=== PATIENT | male | born 1995 | race American Indian/Alaskan Native ===

== ENCOUNTER 2022-01-04 10:16 | Emergency (ER) | payer SELFPAY ==
--- NOTE | 2022-01-04 13:17 | Emergency Department Report ---
ED ENT HPI - General Chief complaint: Sore Throat Stated complaint: SORE THROAT Time Seen by Provider: 01/04/22 10:24 Source: patient Mode of arrival: Ambulatory Limitations: No Limitations - History of Present Illness Initial comments: 26-yr-old male presenting with sore throat since Saturday. Patient describes sharp pain in his left throat, difficulty swallowing or eating, he denies fever, he denies headache, weakness, his symptoms with dry cough, area, He denies nausea or vomiting, no abdominal pain, no chest pain, no cough cold congestion, no weakness dizziness or vision changes. He is unsure of sick contacts. Otherwise other pertinent ROS negative - Related Data Previous Rx's Medication Instructions Recorded Last Taken Type Cefdinir 300 mg PO BID #10 cap 01/04/22 Unknown Rx Codeine Phosphate/Guaifenesin 10 ml PO TID PRN #100 01/04/22 Unknown Rx [Guaifen-Codeine 200-20 mg/10Ml] Ibuprofen [Motrin 800 MG tab] 800 mg PO Q8HR PRN #20 tablet 01/04/22 Unknown Rx Phenol 1.4% [Chloraseptic] 1 spray MM PRN PRN #1 bottle 01/04/22 Unknown Rx Allergies Allergy/AdvReac Type Severity Reaction Status Date / Time Penicillins Allergy Intermediate Hives Verified 01/04/22 10:22 ED Dental HPI - General Chief complaint: Sore Throat Stated complaint: SORE THROAT Time Seen by Provider: 01/04/22 10:24 Source: patient Mode of arrival: Ambulatory Limitations: No Limitations - Related Data Previous Rx's Medication Instructions Recorded Last Taken Type Cefdinir 300 mg PO BID #10 cap 01/04/22 Unknown Rx Codeine Phosphate/Guaifenesin 10 ml PO TID PRN #100 01/04/22 Unknown Rx [Guaifen-Codeine 200-20 mg/10Ml] Ibuprofen [Motrin 800 MG tab] 800 mg PO Q8HR PRN #20 tablet 01/04/22 Unknown Rx Phenol 1.4% [Chloraseptic] 1 spray MM PRN PRN #1 bottle 01/04/22 Unknown Rx Allergies Allergy/AdvReac Type Severity Reaction Status Date / Time Penicillins Allergy Intermediate Hives Verified 01/04/22 10:22 ED Review of Systems ROS: Stated complaint: SORE THROAT Other details as noted in HPI Constitutional: denies: fever ENT: throat pain ED Past Medical Hx - Medications Home Medications: Home Medications Medication Instructions Recorded Confirmed Last Taken Type Cefdinir 300 mg PO BID #10 cap 01/04/22 Unknown Rx Codeine Phosphate/Guaifenesin 10 ml PO TID PRN #100 01/04/22 Unknown Rx [Guaifen-Codeine 200-20 mg/10Ml] Ibuprofen [Motrin 800 MG tab] 800 mg PO Q8HR PRN #20 tablet 01/04/22 Unknown Rx Phenol 1.4% [Chloraseptic] 1 spray MM PRN PRN #1 bottle 01/04/22 Unknown Rx ED Physical Exam - General Limitations: No Limitations General appearance: alert, in no apparent distress - Head Head exam: Present: atraumatic - Eye Eye exam: Present: normal appearance - ENT ENT exam: Present: normal exam, normal orophraynx, other (Bilateral tonsillar erythema with enlargement. No exudate. Midline uvula.) - Neck Neck exam: Present: normal inspection, tenderness ED Course Vital Signs 01/04/22 01/04/22 01/04/22 10:17 14:20 14:26 Temperature 98.9 F 97.8 F 98.4 F Pulse Rate 78 76 76 Respiratory 16 18 18 Rate Blood Pressure 134/78 Blood Pressure 117/77 134/78 [Right] O2 Sat by Pulse 100 99 98 Oximetry ED Medical Decision Making - Medical Decision Making 26-yr-old male presenting with sore throat since Saturday. Patient describes sharp pain in his left throat, difficulty swallowing or eating, he denies fever, he denies headache, weakness, his symptoms with dry cough, area, He denies nausea or vomiting, no abdominal pain, no chest pain, no cough cold congestion, no weakness dizziness or vision changes. He is unsure of sick contacts. Symptoms addressed in the emergency department, rapid [id number] test is positive for strep. Discharge home with supportive therapy including antibiotics, warm salt gargle pain management, fever management, force fluids. Patient is tolerating oral intake, he is able to swallow his pills before his discharge, no drooling no trismus, Patient remained stable nontoxic-appearing, afebrile, ambulating steadily without assistance. Gone over ED findings with patient as well as plan for follow-up. Also discussed return precautions with patient, all questions and concerns addressed. Patient is stable to be discharged follow-up outpatient. Audio voice dictation device used, hence the chart might contain some dictation errors, mispronunciations, wrong spelling and wrong verbiage. Critical care attestation.: If time is entered above; I have spent that time in minutes in the direct care of this critically ill patient, excluding procedure time. ED Disposition Clinical Impression: Strep sore throat Disposition: HOME / SELF CARE / HOMELESS Is pt being admited?: No Does the pt Need Aspirin: No Condition: Stable Instructions: Pharyngitis, [id number] Prescriptions: Cefdinir 300 mg PO BID #10 cap Phenol 1.4% [Chloraseptic] 1 spray MM PRN PRN #1 bottle PRN Reason: Sore Throat Codeine Phosphate/Guaifenesin [Guaifen-Codeine 200-20 mg/10Ml] 10 ml PO TID PRN #100 PRN Reason: Cough Ibuprofen [Motrin 800 MG tab] 800 mg PO Q8HR PRN #20 tablet PRN Reason: Pain , Severe (7-10) Referrals: PRIMARY CAREMD [Primary Care Provider] - 3-5 Days BRIDGET RAMACHANDRAN MD [Staff Physician] - 3-5 Days Forms: Work/School Release Form(ED)
[2022-01-04] MEDS ORDERED: guaiFENesin/CODEINE 100-10MG ORAL LIQD 5 ML PO ONE (13:21)
[2022-01-04] MEDS ORDERED: dexAMETHasone 20 MG/5 ML VIAL IM ONE (13:21)
[2022-01-04 14:21] VITALS: BP 134/78
== END 2022-01-04 14:26 | disposition home or self-care (01) ==
LOC: ED 10:16
DX: J02.0 Streptococcal pharyngitis (principal); Z88.0 Allergy status to penicillin
CPT/HCPCS: 87430; 96372; 99283; J1100